=== PATIENT | male | born 1980 | race Caucasian/White ===

== ENCOUNTER 2018-01-05 12:01 | Day surgery (SDC) | payer BC ==
[2018-01-04 09:52] VITALS: BMI 26.2
[~2018-01-05 12:01] MED LIST: LACTATED RINGERS 1,000 ML IV SCH
[2018-01-05] MEDS ORDERED: LIDOCAINE 1% 20 ML VIAL (10MG/ML) FOR IV START INTRADERMA ONE (12:12)
[2018-01-05 12:32] VITALS: RESP 16; TEMP 97.8
[2018-01-05] MEDS ORDERED: PROPOFOL 10 MG/ML 20 ML VIAL IV ONE (14:17)
--- NOTE | 2018-01-05 15:06 | P.PCN ---
Date of Procedure: 01/05/18 Procedure(s) Performed: Procedure: 1. Esophagogastroduodenoscopy and biopsy. 2. Lower endoscopy/ ileoscopy/enteroscopy with biopsy. Preoperative diagnosis: Anemia with history of ulcerative colitis, S/P total proctocolectomy with ileoanal anal anastomosis and J-pouch creation. Postoperative diagnosis: 1. Small sliding hiatal hernia and short segment of Villa's esophagus and mild gastritis but no ulcers or active bleeding. 2. Small isolated ulceration in the pouch but, otherwise, no evidence of pouchitis or small intestinal inflammation. Preparation and sedation: Was provided by anesthesia. Brief clinical history: The patient is a 37-year-old male who was diagnosed with ulcerative colitis at age 22. He had required total colectomy with colostomy in 2011 which was then converted to ileo-anal anastomosis and creation of the J pouch in 2014 after herniation at the colostomy site. The patient has done well taking loperamide. More recently he has been having loose and watery stools with occasional blood. Has slight anemia. This evaluation is to assess for pouchitis or other etiology. Procedure: With the patient on his left lateral decubitus position and after informed consent and adequate sedation, I passed the Olympus-GIF 160 video upper endoscope through the cricopharyngeus down the esophagus. The zenia-GE junction starts at around 36 cm from the incisors and the tubular esophagus continues for another 2 cm defining a short Villa's segment then there was a small sliding hiatal hernia. The esophagus did not show obvious esophagitis. The endoscope was then passed into the stomach which was insufflated with air and inspected in detail including the retroflex view in the cardia. There was some mottling and erythema in the antrum but no ulcers or erosions. Pyloric channel, duodenal bulb, post bulbar area and descending duodenum appeared within normal limits. I obtained biopsies from the duodenum, antrum and esophagus as well as from the Villa's segment before the endoscope was withdrawn then I proceeded with the lower endoscopy. The perianal area was inspected and it did not show any fissures or fistulas. No masses were felt on digital rectal examination. The Olympus GIF 160 video endoscope was again used and was advanced inside the J-pouch and into the small intestine for a good distance. There was an isolated ulceration close to the anal junction but, otherwise, there was no evidence of pouchitis or small bowel involvement. I obtained biopsies in the anal pouch including a separate biopsy from the isolated ulceration close to the anal anastomosis. There was no spontaneous bleeding and all intestinal secretions were greenish in color. The patient tolerated the procedure well. Plan: The patient was reassured. Will await biopsy results and make further plans. I will keep you updated on his progress.
[2018-01-05 15:20] VITALS: BP 121/78; PULSE 71
== END 2018-01-05 15:30 | disposition home or self-care (01) ==
LOC: ORWHC2ENDO 12:01
DX: K29.50 Unspecified chronic gastritis without bleeding (principal); K20.9 Esophagitis, unspecified; K22.70 Barrett's esophagus without dysplasia; K52.89 Other specified noninfective gastroenteritis and colitis; K44.9 Diaphragmatic hernia without obstruction or gangrene; K51.90 Ulcerative colitis, unspecified, without complications; Z93.3 Colostomy status; Z90.49 Acquired absence of other specified parts of digestive tract; Z98.0 Intestinal bypass and anastomosis status; K21.9 Gastro-esophageal reflux disease without esophagitis; F17.210 Nicotine dependence, cigarettes, uncomplicated; G47.33 Obstructive sleep apnea (adult) (pediatric); G43.909 Migraine, unspecified, not intractable, without status migrainosus; Z79.899 Other long term (current) drug therapy
CPT/HCPCS: 88305; 43239; 44382; J2704

== ENCOUNTER 2018-07-24 19:24 | Emergency (ER) | payer BC ==
[2018-07-24 19:36] VITALS: TEMP 97.8
[2018-07-24] MEDS ORDERED: diphenhydrAMINE 50 MG/ML 1 ML VIAL IVP STA (20:17)
[2018-07-24] MEDS ORDERED: ONDANSETRON 4 MG/2 ML VIAL IVP STA (20:17)
[2018-07-24] MEDS ORDERED: KETOROLAC 30 MG/ML 1 ML VIAL IVP STA (20:17)
[2018-07-24] MEDS ORDERED: SODIUM CHLORIDE 0.9% 1,000 ML IV ONE (20:18)
--- NOTE | 2018-07-24 20:26 | ED ---
Headache HPI - General Chief Complaint: Headache Stated Complaint: Migraine Time Seen by Provider: 07/24/18 19:45 Mode of arrival: ambulatory Limitations: no limitations - History of Present Illness Initial Comments: 37yo male past history of chronic migraines previously prescribed Imitrex presented for chief complaint of migraine. Patient states he had a gradual onset of headache around 8 AM this morning. He states he has been increasing in intensity. He states he attempted to take Tylenol and take a nap. He states sometimes this works. He states that today he continued and then he proceeded to take an Excedrin. With symptoms persisted into this evening patient presented for evaluation. Patient states this is not the worst headache of his life. He states is very typical of his migraines is significant for the neck and migrates towards the frontal aspect of his head. He states usually has to nausea or vomiting he denies any of those symptoms today. Patient denies any visual changes weakness of the upper or lower extremities, speech changes, sensation deficits , fever, upper respiratory symptoms chest pain shortness of breath or any other associated symptoms today. Patient describes as a sharp stabbing headache. Patient states he usually presents emergency department when it gets to this level and he is provided medication to help alleviate his sym ptoms. Patient remaining review of systems negative upon arrival patient appears uncomfortable however no signs of acute distress. - Related Data Home Medications Medication Instructions Recorded Confirmed Diphenox-Atrop 2.5-0.025 mg 2 tab PO QID PRN 01/04/18 01/05/18 [Lomotil] Omeprazole [PriLOSEC] 40 mg PO DAILY 01/04/18 01/05/18 Previous Rx's Medication Instructions Recorded Ketorolac [Toradol] 10 mg PO Q6HR PRN 1 Days #4 tab 07/24/18 Allergies Allergy/AdvReac Type Severity Reaction Status Date / Time No Known Allergies Allergy Verified 07/24/18 19:33 Review of Systems ROS Statement: Those systems with pertinent positive or pertinent negative responses have been documented in the HPI. ROS Other: All systems not noted in ROS Statement are negative. Past Medical History Past Medical History: GERD/Reflux Additional Past Medical History / Comment(s): MIGRAINES, HX OF ULCERATIVE COLITIS WITH BOWEL SURGERY WITH J- POUCH.([id number])., DIARRHEA., History of Any Multi-Drug Resistant Organisms: None Reported Past Surgical History: Bowel Resection, Hernia Repair Additional Past Surgical History / Comment(s): HX OF BOWEL RESECTION WITH COLOSTOMY & REVERSA WITH J-POUCH., UMBILICAL HERNIA. Past Anesthesia/Blood Transfusion Reactions: No Reported Reaction Past Psychological History: No Psychological Hx Reported Smoking Status: Current some day smoker Past Alcohol Use History: Occasional Past Drug Use History: None Reported - Past Family History Mother Family Medical History: No Reported History General Exam - General Exam Comments Initial Comments: General: The patient is awake and alert, in no distress Eye: +3 mm pupils are equal, round and reactive to light, extra-ocular movements are intact. No nystagmus. There is normal conjunctiva bilaterally. No signs of icterus. Ears, nose, mouth and throat: There are moist mucous membranes and no oral lesions. Neck: The neck is supple, there is no tenderness or JVD. No nuchal rigidity. No midline tenderness. Cardiovascular: There is a regular rate and rhythm. No murmur, rub or gallop is appreciated. Respiratory: Lungs are clear to auscultation, respirations are non-labored, breath sounds are equal. No wheezes, stridor, rales, or rhonchi. Musculoskeletal: Normal ROM, no tenderness. Strength 5/5. Sensation intact. Pulses equal bilaterally 2+. Neurological: A&O x 3. CN II-XII intact,memory intact to immediately, intermediate and intermediate recall. Able to follow simple verbal. Able to name a common object (pen). High quality, labial (pa) and lingual (la) speech. Low quality posterior pharynx/larynx (ga) voice sounds. Able to express general knowledge (days in a week). No hemineglect or inattention noted. Finger agnosia (-) and spatially oriented (identified L index finger touched R shoulder with L index finger). Light touch and temperature sensation present over the face, chest, abdomen, back, UE bilaterally, and LE bilaterally. Able to localize point during point localization b/l and extinction. No visible bulk atrophy, hypertrophy, fasciculations, or myoclonus of the UE or LE b/l. Full PROM in UE and LE b/l. Bilateral muscle strength 5/5 for the following muscles: deltoid, biceps, triceps, brachioradialis, wrist extensors/flexor, hip flexor, hip abductors/adductors, hamstrings, quadriceps, feet dorsiflexors/plantar flexors. Finger to nose, finger to the examiners finger, and heel to lyons coordinated and accurate b/l. Coordinated and even demonstration of hand flip, finger to thumb, and toe tap b/l. Gait is coordinated and even in stride with tandem, toe and heel walk. Maintains balance with monopedal stance. (-) Romberg. (-) pronator drift. No nuchal rigidity. Skin: Skin is warm and dry and no rashes or lesions are noted. Psychiatric: Cooperative, appropriate mood & affect, normal judgment. Limitations: no limitations Course Vital Signs 07/24/18 07/24/18 19:31 21:18 Temperature 97.8 F Pulse Rate 77 73 Respiratory 16 18 Rate Blood Pressure 137/83 121/81 O2 Sat by Pulse 100 99 Oximetry Medical Decision Making - Medical Decision Making 37-year-old male presenting for migraine. Patient states his history of chronic migraines she denies any atypical characteristics of this migraine today. He denies a sudden onset he denies this being the worst headache of his life denies any neck stiffness fever chills or night sweats. Patient states usually comes emergency Department for portion of the migraine symptoms. No focalized neurological symptoms on examination. Patient was given Toradol Benadryl and Zofran. He states that his migraine is decreasing suddenly. He states is now 3 out of 10. Patient requesting discharge. At this time given patient's physical examination findings, relief with symptomatic treatment that patient is stable for discharge with outpatient primary f/u. . I did recommend patient received a neurology referral from PCP for further evaluation/management of chronic migraines. Patient is agreeable [facility] plan and return parameters as discussed. Patient discharged appearing well. Disposition Clinical Impression: Headache Disposition: HOME SELF-CARE Condition: Good Instructions (If sedation given, give patient instructions): Acute Headache (ED) Additional Instructions: Please use medication as discussed. Please follow-up with family doctor in the next 2 days, I recommend neurological evaluation given chronicity of symptoms. Please return to emergency room if the symptoms increase or worsen or for any other concerns. Prescriptions: Ketorolac [Toradol] 10 mg PO Q6HR PRN 1 Days #4 tab PRN Reason: Headache Is patient prescribed a controlled substance at d/c from ED?: No Referrals: Navi Colbert MD [Primary Care Provider] - 1-2 days Time of Disposition: 20:59
[2018-07-24 21:19] VITALS: BP 121/81; PULSE 73; RESP 18
== END 2018-07-24 21:18 | disposition home or self-care (01) ==
LOC: EC 19:24
DX: G43.709 Chronic migraine without aura, not intractable, without status migrainosus (principal); K21.9 Gastro-esophageal reflux disease without esophagitis; F17.200 Nicotine dependence, unspecified, uncomplicated; Z79.899 Other long term (current) drug therapy
CPT/HCPCS: 99283; 96374; 96375 ×2; 96361; J1200; J2405; J1885

== ENCOUNTER 2019-11-05 13:17 | Emergency (ER) | payer BC ==
[2019-11-05 13:39] VITALS: TEMP 98
[2019-11-05] MEDS ORDERED: MORPHINE SULFATE 4 MG/ML SYRINGE IV STA (13:49)
[2019-11-05] MEDS ORDERED: SODIUM CHLORIDE 0.9% 1,000 ML IV STA ×2 (13:49)
[2019-11-05] MEDS ORDERED: ONDANSETRON 4 MG/2 ML VIAL IVP STA (13:49)
--- NOTE | 2019-11-05 13:50 | ED ---
Abdominal Pain HPI - General Chief Complaint: Abdominal Pain Stated Complaint: Abd Pain Time Seen by Provider: 11/05/19 13:49 Source: patient, RN notes reviewed, old records reviewed Mode of arrival: ambulatory Limitations: no limitations - History of Present Illness Initial Comments: This is a 31-year-old male presents today for evaluation regarding abdominal pain epigastric abdominal pain right upper quadrant abdominal pain. With pain became very diaphoretic and pale. Nauseous no vomiting no fevers. History of ulcerative colitis and J-pouch. Patient still currently with pain MD Complaint: abdominal pain -: minutes(s) Location: diffuse, periumbilical, epigastric Radiation: epigastric Migration to: RUQ Severity: severe Severity scale (1-10): 10 Quality: stabbing, aching Consistency: constant Improves With: nothing Worsens With: nothing Associated Symptoms: nausea - Related Data Home Medications Medication Instructions Recorded Confirmed Diphenox-Atrop 2.5-0.025 mg 2 tab PO QID PRN 01/04/18 01/05/18 [Lomotil] Omeprazole [PriLOSEC] 40 mg PO DAILY 01/04/18 01/05/18 Previous Rx's Medication Instructions Recorded Ketorolac [Toradol] 10 mg PO Q6HR PRN 1 Days #4 tab 07/24/18 Allergies Allergy/AdvReac Type Severity Reaction Status Date / Time No Known Allergies Allergy Verified 11/05/19 13:36 Review of Systems ROS Statement: Those systems with pertinent positive or pertinent negative responses have been documented in the HPI. ROS Other: All systems not noted in ROS Statement are negative. Past Medical History Past Medical History: GERD/Reflux Additional Past Medical History / Comment(s): MIGRAINES, HX OF ULCERATIVE COLITIS WITH BOWEL SURGERY WITH J- POUCH.([id number])., DIARRHEA., History of Any Multi-Drug Resistant Organisms: None Reported Past Surgical History: Bowel Resection, Hernia Repair Additional Past Surgical History / Comment(s): HX OF BOWEL RESECTION WITH COLOSTOMY & REVERSA WITH J-POUCH., UMBILICAL HERNIA. Past Anesthesia/Blood Transfusion Reactions: No Reported Reaction Past Psychological History: No Psychological Hx Reported Smoking Status: Current every day smoker, Never smoker Past Alcohol Use History: Occasional Past Drug Use History: None Reported - Past Family History Mother Family Medical History: No Reported History General Exam Limitations: no limitations General appearance: alert, in no apparent distress Head exam: Present: atraumatic, normocephalic, normal inspection Eye exam: Present: normal appearance, PERRL, EOMI. Absent: scleral icterus, conjunctival injection, periorbital swelling ENT exam: Present: normal exam, mucous membranes moist Neck exam: Present: normal inspection. Absent: tenderness, meningismus, lympha denopathy Respiratory exam: Present: normal lung sounds bilaterally. Absent: respiratory distress, wheezes, rales, rhonchi, stridor Cardiovascular Exam: Present: regular rate, normal rhythm, normal heart sounds. Absent: systolic murmur, diastolic murmur, rubs, gallop, clicks GI/Abdominal exam: Present: soft, normal bowel sounds. Absent: distended, tenderness, guarding, rebound, rigid Extremities exam: Present: normal inspection, full ROM, normal capillary refill. Absent: tenderness, pedal edema, joint swelling, calf tenderness Back exam: Present: normal inspection Neurological exam: Present: alert, oriented X3, CN II-XII intact Psychiatric exam: Present: normal affect, normal mood Skin exam: Present: warm, dry, intact, normal color. Absent: rash Course Vital Signs 11/05/19 11/05/19 11/05/19 13:36 14:53 16:34 Temperature 98 F Pulse Rate 97 82 81 Respiratory 18 18 16 Rate Blood Pressure 130/70 123/65 120/78 O2 Sat by Pulse 100 97 100 Oximetry - Reevaluation(s) Reevaluation #1: 11/05/19 14:36 Medical records reviewed Reevaluation #2: 11/05/19 16:44 Patient has scheduled pain control currently Reevaluation #3: 11/05/19 16:44 Patient informed results and questions are answered Medical Decision Making - Medical Decision Making 39 male DF for evaluation patient to the ER for evaluation regards to abdominal pain. Patient's findings here in the ER normal. Ligament GI follow-up and can be discharged home - Lab Data Result diagrams: 11/05/19 13:49 11/05/19 13:49 Lab Results 11/05/19 11/05/19 11/05/19 Range/Units 13:49 13:49 13:49 WBC 9.4 (3.8-10.6) k/uL RBC 4.82 (4.30-5.90) m/uL Hgb 9.7 L (13.0-17.5) gm/dL Hct 32.7 L (39.0-53.0) % MCV 67.9 L (80.0-100.0) fL MCH 20.1 L (25.0-35.0) pg MCHC 29.6 L (31.0-37.0) g/dL RDW 17.9 H (11.5-15.5) % Plt Count 462 H (150-450) k/uL Neutrophils % 79 % Lymphocytes % 10 % Monocytes % 7 % Eosinophils % 2 % Basophils % 1 % Neutrophils # 7.5 (1.3-7.7) k/uL Lymphocytes # 1.0 (1.0-4.8) k/uL Monocytes # 0.7 (0-1.0) k/uL Eosinophils # 0.2 (0-0.7) k/uL Basophils # 0.0 (0-0.2) k/uL Hypochromasia Marked Poikilocytosis Slight Anisocytosis Slight Microcytosis Marked Sodium 139 (137-145) mmol/L Potassium 4.5 (3.5-5.1) mmol/L Chloride 109 H (98-107) mmol/L Carbon Dioxide 21 L (22-30) mmol/L Anion Gap 9 mmol/L BUN 15 (9-20) mg/dL Creatinine 1.03 (0.66-1.25) mg/dL Est GFR (CKD-EPI)AfAm >90 (>60 ml/min/1.73 sqM) Est GFR (CKD-EPI)NonAf >90 (>60 ml/min/1.73 sqM) Glucose 61 L (74-99) mg/dL Plasma Lactic Acid Domingo 1.6 (0.7-2.0) mmol/L Calcium 9.3 (8.4-10.2) mg/dL Total Bilirubin 0.5 (0.2-1.3) mg/dL AST 52 (17-59) U/L ALT 27 (4-49) U/L Alkaline Phosphatase 103 (38-126) U/L Total Protein 7.5 (6.3-8.2) g/dL Albumin 4.3 (3.5-5.0) g/dL Amylase 76 (30-110) U/L Lipase 243 (23-300) U/L - Radiology Data Radiology results: report reviewed (Ultrasound gallbladder and x-ray KUB negative for acute disease), image reviewed Disposition Clinical Impression: Abdominal pain Disposition: HOME SELF-CARE Condition: Good Instructions (If sedation given, give patient instructions): Abdominal Pain (ED) Is patient prescribed a controlled substance at d/c from ED?: No Referrals: Erasmo Moreno MD [Primary Care Provider] - 1-2 days
[2019-11-05 14:13] LABS: Anisocytosis Slight; Basophils % (A) 1 %; Eosinophils # (A) 0.2 k/uL (0-0.7); Eosinophils % (A) 2 %; HCT 32.7 % (39.0-53.0); HGB 9.7 gm/dL (13.0-17.5); Hypochromasia Marked; Lymphocytes % (A) 10 %; MCH 20.1 pg (25.0-35.0); MCHC 29.6 g/dL (31.0-37.0); MCV 67.9 fL (80.0-100.0); Mean Platelet Volume 6.7; Microcytosis Marked; Monocytes # (A) 0.7 k/uL (0-1.0); Monocytes % (A) 7 %; Neutrophils # (A) 7.5 k/uL (1.3-7.7); Neutrophils % (A) 79 %; Platelet Count 462 k/uL (150-450); Poikilocytosis Slight; RBC 4.82 m/uL (4.30-5.90); RDW 17.9 % (11.5-15.5); WBC 9.4 k/uL (3.8-10.6)
[2019-11-05 14:22] LABS: ALT 27 U/L (4-49); AST 52 U/L (17-59); African American GFR (CKD) >90 (>60 ml/min/1.73 sqM); Albumin 4.3 g/dL (3.5-5.0); Alkaline Phosphatase 103 U/L (38-126); Amylase 76 U/L (30-110); Anion Gap 9 mmol/L; Blood Urea Nitrogen 15 mg/dL (9-20); Calcium 9.3 mg/dL (8.4-10.2); Carbon Dioxide 21 mmol/L (22-30); Chloride 109 mmol/L (98-107); Glucose 61 mg/dL (74-99); Non-African American GFR(CKD) >90 (>60 ml/min/1.73 sqM); Potassium 4.5 mmol/L (3.5-5.1); Sodium 139 mmol/L (137-145); Total Bilirubin 0.5 mg/dL (0.2-1.3); Total Protein 7.5 g/dL (6.3-8.2)
--- NOTE | 2019-11-05 14:49 | XR ---
EXAMINATION TYPE: XR KUB DATE OF EXAM: 11/05/2019 COMPARISON: 06/02/2011 HISTORY: Right upper quadrant pain TECHNIQUE: 2 views upright. FINDINGS: There is no sign of intestinal obstruction or pneumoperitoneum. Fecal pattern is normal. There is no evidence of a mass. There are no pathologic calcifications over the kidneys. Lung bases are clear. IMPRESSION: Nonacute abdomen.
--- NOTE | 2019-11-05 16:24 | US ---
EXAMINATION TYPE: US gallbladder DATE OF EXAM: 11/05/2019 COMPARISON: CT 08/20/11 CLINICAL HISTORY: pain. Intermittent RUQ Pain, nausea x months; worse today EXAM MEASUREMENTS: Liver Length: 17.0 cm Gallbladder Wall: 0.3 cm CBD: 0.4 cm Right Kidney: 12.3 x 4.2 x 5.0 cm Pancreas: wnl as seen Liver: wnl Gallbladder: multiple stones Evidence for sonographic Christine's sign: No CBD: wnl Right Kidney: No hydronephrosis or masses seen IMPRESSION: Numerous gallstones. No dilated ducts.
[2019-11-05 16:37] VITALS: BP 120/78; PULSE 81; RESP 16
== END 2019-11-05 17:15 | disposition home or self-care (01) ==
LOC: EC 13:17
DX: R10.13 Epigastric pain (principal); R10.11 Right upper quadrant pain; R10.33 Periumbilical pain; K21.9 Gastro-esophageal reflux disease without esophagitis; Z79.899 Other long term (current) drug therapy; Z98.890 Other specified postprocedural states; Z93.3 Colostomy status
CPT/HCPCS: 36415; 80053; 82150; 83605; 83690; 85025; 74018; 76705; 99285; 96374; 96375; 96361 ×3; J2270; J2405

== ENCOUNTER 2020-01-30 07:27 | Day surgery (SDC) | payer BC ==
[2020-01-25 15:35] VITALS: BMI 23.7
[~2020-01-30 07:27] MED LIST changes: +ACETAMINOPHEN TAB 500 MG TAB PO PRN; +DEXAMETHASONE SOD PHOSPHATE 4 MG/ML 1 ML VIAL IV ONE; +HEPARIN SODIUM,PORCINE 5,000 UNIT/ML 1 ML VIAL SQ PRN
[2020-01-30 07:45] VITALS: RESP 16
[2020-01-30] MEDS ORDERED: TAMSULOSIN 0.4 MG CAP.ER.24H PO ONE (08:02)
[2020-01-30] MEDS: ONDANSETRON 4 MG/2 ML VIAL IVP ONE ×2 (08:02→10:06)
--- NOTE | 2020-01-30 08:42 | P.GSHP ---
History of Present Illness H&P Date: 01/30/20 Chief Complaint: Right upper quadrant pain This a 39-year-old male since they for laparoscopic cholestatic. He's had complete the right quadrant pain. He is found have cholelithiasis. Past Medical History Past Medical History: GERD/Reflux Additional Past Medical History / Comment(s): MIGRAINES, HX OF ULCERATIVE COLITIS WITH BOWEL SURGERY WITH J- POUCH.([id number])., DIARRHEA., History of Any Multi-Drug Resistant Organisms: None Reported Past Surgical History: Bowel Resection, Hernia Repair Additional Past Surgical History / Comment(s): HX OF BOWEL RESECTION WITH COLOSTOMY & REVERSA WITH J-POUCH., UMBILICAL HERNIA. Past Anesthesia/Blood Transfusion Reactions: No Reported Reaction Smoking Status: Current every day smoker - Past Family History Mother Family Medical History: No Reported History Medications and Allergies Home Medications Medication Instructions Recorded Confirmed Type Escitalopram Oxalate [Lexapro] 20 mg PO DAILY 01/25/20 01/30/20 History Famotidine [Pepcid] 20 mg PO DAILY 01/25/20 01/30/20 History Ferrous Fumarate/Ascorbic Acid 1 each PO Q2D 01/25/20 01/30/20 History [Janet-Sequels 65-25 mg Caplet] Loperamide [Imodium] 4 mg PO QID 01/25/20 01/30/20 History Allergies Allergy/AdvReac Type Severity Reaction Status Date / Time No Known Allergies Allergy Verified 01/30/20 07:46 Surgical - Exam Vital Signs Temp Pulse Resp BP Pulse Ox 98.6 F 71 16 123/77 98 01/30/20 07:43 01/30/20 07:43 01/30/20 07:43 01/30/20 07:43 01/30/20 07:43 - General well developed, well nourished, no distress - Eyes PERRL - ENT normal pinna - Neck no masses - Respiratory normal expansion - Cardiovascular Rhythm: regular - Abdomen Abdomen: soft, non tender Assessment and Plan Assessment: Cholelithiasis Right quadrant pain We'll perform laparoscopic cholecystectomy.
[2020-01-30] MEDS ORDERED: ROCURONIUM 10 MG/ML (10 ML VIAL) IV ONE (09:00)
[2020-01-30] MEDS ORDERED: MIDAZOLAM 2 MG/2 ML VIAL ONE (09:00)
[2020-01-30] MEDS ORDERED: PROPOFOL 10 MG/ML 20 ML VIAL IV ONE (09:00)
[2020-01-30] MEDS ORDERED: SUCCINYLCHOLINE CHLORIDE 100 MG/5 ML SYR IV ONE (09:00)
[2020-01-30] MEDS ORDERED: HYDROmorphone (PF) 1 MG/ML ONE (09:00)
[2020-01-30] MEDS ORDERED: GLYCOPYRROLATE 0.2 MG/ML 2 ML VIAL ONE (09:00)
[2020-01-30] MEDS ORDERED: LIDOCAINE 1% INJ 10MG/ML (20 ML MDV) ONE (09:00)
[2020-01-30] MEDS ORDERED: NEOSTIGMINE 1 MG/ML 10 ML VIAL ONE (09:00)
[2020-01-30] MEDS ORDERED: fentaNYL (PF) 50 MCG/ML 2 ML AMP ONE (09:00)
[2020-01-30] MEDS ORDERED: BUPIVACAIN-EPI 0.5%-1:200,000 30 ML VIAL SQ ONE (09:18)
[2020-01-30] MEDS ORDERED: LACTATED RINGERS 1,000 ML IV ONE (09:28)
[2020-01-30 09:44] VITALS: TEMP 98
[2020-01-30] MEDS ORDERED: KETOROLAC 15 MG/ML 1 ML VIAL IVP ONE (09:47)
--- NOTE | 2020-01-30 09:48 | P.OP ---
Date of Procedure: 01/30/20 Preoperative Diagnosis: Cholelithiasis Postoperative Diagnosis: Cholelithiasis Procedure(s) Performed: Laparoscopic cholecystectomy Anesthesia: WILVER Surgeon: Mckinley Reeves Estimated Blood Loss (ml): 5 Pathology: other (Gallbladder) Condition: stable Disposition: PACU Description of Procedure: The patient was placed on the operating table. The patient received a general endotracheal tube anesthesia. The patients abdomen was prepped and draped in the usual sterile fashion. Through an infraumbilical stab incision, the fascia of the anterior abdominal wall was grasped with a pair of Kochers and then the Veress needle was placed in the peritoneal cavity. Position of the Veress needle was confirmed with positive drop test. The abdomen was then insufflated. After adequate insufflation, the 10 mm trocar was placed in the peritoneal cavity. Following this the laparoscope was placed in the peritoneal cavity. The patient was placed in the head-up, right side up position and then a 5 mm trocar was placed in the right lateral and right subcostal position under direct visualization. A 8 mm trocar was placed in the epigastric position. The gallbladder was grasped in the fundus and infundibulum. Traction on the gallbladder was placed in the lateral and the cephalad positions. The triangle of Calot was visualized.. The cystic duct was bluntly dissected until the union of the cystic duct and common bile duct was seen. A critical view of safety was achieved. The cystic duct was then divided and sealed with the Harmonic scissors. A PDS Endoloop was then placed throughout the cystic duct stump. The cystic artery divided and sealed with the Harmonic scissors. The gallbladder was then removed from the liver bed using Harmonic scissors. The gallbladder was then extracted through the epigastric port site. Operative field was checked for any bleeding spots and Harmonic scissors was used to coagulate the liver bed. The abdomen was irrigated. The trocars were removed. The skin was closed using interrupted 3-0 Vicryl suture. Dermabond dressing were applied. The patient tolerated the procedure well.
[2020-01-30] MEDS: HYDROmorphone 0.5 MG/0.5 ML SYRINGE IVP PRN ×2 (09:55→10:06)
[2020-01-30 11:29] VITALS: BP 113/69; PULSE 96
== END 2020-01-30 11:34 | disposition home or self-care (01) ==
LOC: OR 07:27
PROVIDERS: ATTEND Surgery
DX: K80.12 Calculus of gallbladder with acute and chronic cholecystitis without obstruction (principal); K51.90 Ulcerative colitis, unspecified, without complications; F41.9 Anxiety disorder, unspecified; F32.9 Major depressive disorder, single episode, unspecified; K21.9 Gastro-esophageal reflux disease without esophagitis; G43.909 Migraine, unspecified, not intractable, without status migrainosus; F17.210 Nicotine dependence, cigarettes, uncomplicated; Z79.899 Other long term (current) drug therapy; Z90.49 Acquired absence of other specified parts of digestive tract; Z98.890 Other specified postprocedural states
CPT/HCPCS: 47562; J2250; J1644; J1100; J2710; J0690; J2405; J2001; J3010; J1170 ×2; J1885; J0330; J2704; 88304

== ENCOUNTER 2020-05-12 10:43 | Inpatient (IN) | payer BC, MEDICAID, OTHER ==
--- NOTE | 2020-05-12 11:21 | ED ---
General Adult HPI - General Chief complaint: Psychiatric Symptoms Stated complaint: Self Harm Time Seen by Provider: 05/12/20 10:45 Source: patient, RN notes reviewed, old records reviewed Mode of arrival: ambulatory Limitations: no limitations - History of Present Illness Initial comments: This is a 39-year-old male who presents emergency Department stating he's been very depressed lately and has been contemplating suicide. Patient states she has considered taking pills. Patient's been taxing his ex-fiance that he is considering hurting himself. Patient states she has had a couple drinking binges but in general does not drink daily. Patient states he also recently lost his job lost his home and lost his fiance. Patient denies any physical complaints today. - Related Data Home Medications Medication Instructions Recorded Confirmed Escitalopram Oxalate [Lexapro] 20 mg PO DAILY 01/25/20 05/12/20 Ferrous Fumarate/Ascorbic Acid 1 tab PO Q48H 01/25/20 05/12/20 [Janet-Sequels 65-25 mg Caplet] Acetaminophen Tab [Tylenol] 650 mg PO Q6H PRN 05/12/20 05/12/20 LORazepam [Ativan] 0.5 mg PO TID PRN 05/12/20 05/12/20 Allergies Allergy/AdvReac Type Severity Reaction Status Date / Time No Known Allergies Allergy Verified 05/12/20 10:50 Review of Systems ROS Statement: Those systems with pertinent positive or pertinent negative responses have been documented in the HPI. ROS Other: All systems not noted in ROS Statement are negative. Past Medical History Past Medical History: GERD/Reflux Additional Past Medical History / Comment(s): MIGRAINES, HX OF ULCERATIVE COLITIS WITH BOWEL SURGERY WITH J- POUCH.([id number])., DIARRHEA., History of Any Multi-Drug Resistant Organisms: None Reported Past Surgical History: Bowel Resection, Hernia Repair Additional Past Surgical History / Comment(s): HX OF BOWEL RESECTION WITH COLOSTOMY & REVERSA WITH J-POUCH., UMBILICAL HERNIA. Past Anesthesia/Blood Transfusion Reactions: No Reported Reaction Past Psychological History: No Psychological Hx Reported, Anxiety, Depression Smoking Status: Current every day smoker Past Alcohol Use History: Occasional Past Drug Use History: Marijuana - Past Family History Mother Family Medical History: No Reported History General Exam - General Exam Comments Initial Comments: GENERAL: Patient is well-developed and well-nourished. Patient is nontoxic and well- hydrated and is in no acute distress. ENT: Neck is soft and supple. No significant lymphadenopathy is noted. Oropharynx is clear. Moist mucous membranes. Neck has full range of motion without eliciting any pain. EYES: The sclera were anicteric and conjunctiva were pink and moist. Extraocular movements were intact and pupils were equal round and reactive to light. Eyelids were unremarkable. PULMONARY: Unlabored respirations. Good breath sounds bilaterally. No audible rales rhonchi or wheezing was noted. CARDIOVASCULAR: There is a regular rate and rhythm without any murmurs gallops or rubs. ABDOMEN: Soft and nontender with normal bowel sounds. SKIN: Skin is clear with no lesions or rashes and otherwise unremarkable. NEUROLOGIC: Patient is alert and oriented x3. Cranial nerves II through XII are grossly intact. Motor and sensory are also intact. Normal speech, volume and content. Symmetrical smile. MUSCULOSKELETAL: Normal extremities with adequate strength and full range of motion. LYMPHATICS: No significant lymphadenopathy is noted PSYCHIATRIC: Patient is very flat affect and states he has been very depressed and content putting suicide. Patient does have a plan Limitations: no limitations Course Vital Signs 05/12/20 10:46 Temperature 98.4 F Pulse Rate 105 H Respiratory 18 Rate Blood Pressure 132/87 O2 Sat by Pulse 98 Oximetry Medical Decision Making - Medical Decision Making EPS evaluated the patient the patient agreed to be admitted. Disposition Clinical Impression: Depression, Suicidal ideation Disposition: ADMITTED IP TO THIS HOSP Referrals: Erasmo Moreno MD [Primary Care Provider] - 1-2 days Time of Disposition: 14:16
[2020-05-12 14:41] LABS: Amphetamine Screen,Urine Not Detected (NotDetected); Barbiturate Screen,Urine Not Detected (NotDetected); Benzodiazepines Screen,Urine Detected (NotDetected); Cocaine Screen,Urine Not Detected (NotDetected); Methadone Screen, Urine Not Detected (NotDetected); Opiate Screen,Urine Not Detected (NotDetected); Oxycodone Screen, Urine Not Detected (NotDetected); Phencyclidine Screen,Urine Not Detected (NotDetected); Tricyclic Antidepressant,Urine Not Detected (NotDetected); Urn Cannabinoid Scrn Detected (NotDetected)
[2020-05-12] MEDS ORDERED: MAGNESIUM HYDROXIDE 2,400 MG/10 ML CUP PO PRN (15:41)
[2020-05-12] MEDS ORDERED: MAG HYDROX/AL HYDROX/SIMETH 30 ML CUP PO PRN (15:41)
[2020-05-12] MEDS ORDERED: LORazepam 2 MG/ML INJ IM PRN (15:45)
[2020-05-12] MEDS ORDERED: HALOPERIDOL LACTATE 5 MG/ML 1 ML VIAL IM PRN (15:46)
[2020-05-12] MEDS: NICOTINE 14MG/24HR PATCH TRANSDERM SCH (17:02)
[2020-05-12] MEDS: LOPERAMIDE 2 MG CAP PO PRN (17:52)
--- NOTE | 2020-05-12 20:05 | CONS ---
CONSULTATION DATE OF SERVICE: 05/12/2020 REASON FOR CONSULTATION: Advice regarding diarrhea ( ). HISTORY: This 39-year-old gentleman with a past history of GERD, migraine, history of ulcerative colitis, bowel resection, and history of anxiety, depression, being followed by Dr. Moreno in the outpatient admitted for depression and suicidal ideations. The patient apparently taking Imodium 4 mg every 6 hours for diarrhea. The patient had bowel resection with colostomy and pouch from 2002 to 2012. There is no history of fever, rigors. No headache loss of consciousness, seizures at this time. PAST MEDICAL HISTORY: Ulcerative colitis, migraine, GERD, bowel resection, hernia repair. MEDICATIONS: Ativan, iron sulfate, Lexapro, Tylenol. ALLERGIES: None. FAMILY HISTORY: No history of heart disease or strokes in the family. SOCIAL HISTORY: History of smoking currently. No history of alcohol intake. REVIEW OF SYSTEMS: ENT No history of diminished hearing or vision. CARDIOVASCULAR No angina or palpitations. RESPIRATORY No cough, no hemoptysis. GI As mentioned earlier. No dysuria or hematuria. NERVOUS No numbness or weakness. ALLERGY/IMMUNOLOGY No asthma or hayfever. MUSCULOSKELETAL As mentioned earlier. HEMATOLOGY/ONCOLOGY Negative. ENDOCRINE No history of diabetes or hypothyroidism. CONSTITUTIONAL As mentioned earlier. DERMATOLOGY Negative. RHEUMATOLOGY Negative, PSYCHIATRY As mentioned earlier. PHYSICAL EXAMINATION: Alert and oriented x3. Pulse 88, blood pressure 124/70, respiration 20, temperature 98.2, pulse ox 98% on room air. HEENT: Conjunctivae normal. Oral mucosa moist. NECK: No jugular venous distention. No lymph node enlargement. CARDIOVASCULAR: S1, S2, muffled. No S3, no S4, RESPIRATORY: Diminished breath sounds at the bases. Bilateral scattered rhonchi and crackles. ABDOMEN: Soft, nontender. No mass palpable. LEGS: No edema, no swelling. NERVOUS SYSTEM: Higher functions mentioned earlier. Moves all four limbs. No focal motor or sensory deficits. LYMPHATICS: No lymph node in neck or axilla. SKIN: No rash. JOINTS: No active deforming arthropathy. LABS: The urine drug screen is positive for THC and benzodiazepines. ASSESSMENT: 1. Depression with suicidal ideation. 2. Diarrhea secondary to ulcerative colitis. 3. History of bowel resection and a J-pouch. 4. History of migraine. 5. History of gastroesophageal reflux disease. 6. History of anxiety, depression. 7. History of nicotine dependence. 8. FULL CODE. RECOMMENDATIONS: In this 39-year-old gentleman who presented with psychiatric issues, I recommend to resume the home medications and continue with Imodium for now and the patient will be asked to follow up with Dr. Moreno after discharge and I will be happy to review any abnormal labs. We will follow the patient closely. Thank you for letting us participate in the care of this patient. LEA / CRALYN: [phone] /
[2020-05-12] MEDS: LORazepam 1 MG TAB PO PRN (23:16)
[2020-05-12] MEDS: ACETAMINOPHEN TAB 325 MG TAB PO PRN (23:16)
[2020-05-13 07:04] VITALS: RESP 18
[2020-05-13] MEDS: LOPERAMIDE 2 MG CAP PO PRN ×3 (08:00→21:54)
[2020-05-13] MEDS: ACETAMINOPHEN TAB 325 MG TAB PO PRN (08:00)
[2020-05-13] MEDS: NICOTINE 14MG/24HR PATCH TRANSDERM SCH (08:01)
[2020-05-13 08:08] LABS: Basophils % (A) 0 %; Eosinophils # (A) 0.2 k/uL (0-0.7); Eosinophils % (A) 2 %; HCT 50.9 % (39.0-53.0); HGB 16.6 gm/dL (13.0-17.5); Lymphocytes # (A) 2.2 k/uL (1.0-4.8); Lymphocytes % (A) 21 %; MCH 29.5 pg (25.0-35.0); MCHC 32.7 g/dL (31.0-37.0); MCV 90.4 fL (80.0-100.0); Mean Platelet Volume 6.4; Monocytes # (A) 0.8 k/uL (0-1.0); Monocytes % (A) 8 %; Neutrophils # (A) 6.8 k/uL (1.3-7.7); Neutrophils % (A) 67 %; Platelet Count 499 k/uL (150-450); RBC 5.63 m/uL (4.30-5.90); RDW 14.4 % (11.5-15.5); WBC 10.2 k/uL (3.8-10.6)
[2020-05-13 08:19] LABS: Calcium 9.5 mg/dL (8.4-10.2); Total Bilirubin 0.5 mg/dL (0.2-1.3); Total Protein 7.7 g/dL (6.3-8.2)
[2020-05-13 09:07] LABS: Potassium 4.9 mmol/L (3.5-5.1)
[2020-05-13] MEDS: ESCITALOPRAM 20 MG TAB PO SCH (09:20)
[2020-05-13] MEDS ORDERED: PNEUMOCOCCAL VACC-PNEUMOVAX 23 25 MCG/0.5 ML VIAL IM ONE (10:00)
[2020-05-13] MEDS ORDERED: INFLUENZA VACCINE (6 MOS+) 60 MCG/0.5 ML SYRINGE IM ONE (10:00)
--- NOTE | 2020-05-13 11:43 | P.HP ---
Psychiatric H&P - . H&P Date: 05/13/20 History & Physical: Allergies Allergy/AdvReac Type Severity Reaction Status Date / Time No Known Allergies Allergy Verified 05/12/20 18:53 Vital Signs Temp 98.6 F 05/13/20 06:49 Pulse 63 05/13/20 06:49 Resp 18 05/13/20 06:49 BP 132/77 05/13/20 06:49 Pulse Ox 98 05/12/20 18:29 Intake & Output 05/12/20 05/13/20 05/13/20 18:59 06:59 18:59 Weight 90.8 kg Laboratory Last Values WBC 10.2 k/uL (3.8-10.6) 05/13/20 07:52 RBC 5.63 m/uL (4.30-5.90) 05/13/20 07:52 Hgb 16.6 gm/dL (13.0-17.5) 05/13/20 07:52 Hct 50.9 % (39.0-53.0) 05/13/20 07:52 MCV 90.4 fL (80.0-100.0) 05/13/20 07:52 MCH 29.5 pg (25.0-35.0) 05/13/20 07:52 MCHC 32.7 g/dL (31.0-37.0) 05/13/20 07:52 RDW 14.4 % (11.5-15.5) 05/13/20 07:52 Plt Count 499 k/uL (150-450) H 05/13/20 07:52 MPV 6.4 05/13/20 07:52 Neutrophils % 67 % 05/13/20 07:52 Lymphocytes % 21 % 05/13/20 07:52 Monocytes % 8 % 05/13/20 07:52 Eosinophils % 2 % 05/13/20 07:52 Basophils % 0 % 05/13/20 07:52 Neutrophils # 6.8 k/uL (1.3-7.7) 05/13/20 07:52 Lymphocytes # 2.2 k/uL (1.0-4.8) 05/13/20 07:52 Monocytes # 0.8 k/uL (0-1.0) 05/13/20 07:52 Eosinophils # 0.2 k/uL (0-0.7) 05/13/20 07:52 Basophils # 0.0 k/uL (0-0.2) 05/13/20 07:52 Sodium 140 mmol/L (137-145) 05/13/20 07:52 Potassium 4.9 mmol/L (3.5-5.1) 05/13/20 07:52 Chloride 103 mmol/L (98-107) 05/13/20 07:52 Carbon Dioxide 28 mmol/L (22-30) 05/13/20 07:52 Anion Gap 9 mmol/L 05/13/20 07:52 BUN 18 mg/dL (9-20) 05/13/20 07:52 Creatinine 1.27 mg/dL (0.66-1.25) H 05/13/20 07:52 Est GFR (CKD-EPI)AfAm 82 (>60 ml/min/1.73 sqM) 05/13/20 07:52 Est GFR (CKD-EPI)NonAf 71 (>60 ml/min/1.73 sqM) 05/13/20 07:52 Glucose 91 mg/dL (74-99) 05/13/20 07:52 Calcium 9.5 mg/dL (8.4-10.2) 05/13/20 07:52 Total Bilirubin 0.5 mg/dL (0.2-1.3) 05/13/20 07:52 AST 36 U/L (17-59) 05/13/20 07:52 ALT 25 U/L (4-49) 05/13/20 07:52 Alkaline Phosphatase 59 U/L (38-126) 05/13/20 07:52 Total Protein 7.7 g/dL (6.3-8.2) 05/13/20 07:52 Albumin 4.0 g/dL (3.5-5.0) 05/13/20 07:52 Triglycerides 95 mg/dL (<150) 05/13/20 07:52 Cholesterol 180 mg/dL (<200) 05/13/20 07:52 LDL Cholesterol, Calc 136 mg/dL (0-99) H 05/13/20 07:52 HDL Cholesterol 25 mg/dL (40-60) L 05/13/20 07:52 Urine Opiates Screen Not Detected (NotDetected) 05/12/20 14:06 Ur Oxycodone Screen Not Detected (NotDetected) 05/12/20 14:06 Urine Methadone Screen Not Detected (NotDetected) 05/12/20 14:06 Ur Propoxyphene Screen Not Detected (NotDetected) 05/12/20 14:06 Ur Barbiturates Screen Not Detected (NotDetected) 05/12/20 14:06 U Tricyclic Antidepress Not Detected (NotDetected) 05/12/20 14:06 Ur Phencyclidine Scrn Not Detected (NotDetected) 05/12/20 14:06 Ur Amphetamines Screen Not Detected (NotDetected) 05/12/20 14:06 U Methamphetamines Scrn Not Detected (NotDetected) 05/12/20 14:06 U Benzodiazepines Scrn Detected (NotDetected) H 05/12/20 14:06 Urine Cocaine Screen Not Detected (NotDetected) 05/12/20 14:06 U Marijuana (THC) Screen Detected (NotDetected) H 05/12/20 14:06 Coronavirus (PCR) Not Detected (Not Detectd) 05/12/20 14:17 05/13/20 11:20 Chief complaint: Patient stated he is going through a separation from his partner. He lost his job. He stated he started drinking alcohol and became depressed and had suicidal thoughts and made a suicidal attempt. History of present illness: This patient stated he was thrown out of his job and ever since he has started to drink more than but he would normally do. He stated he thought that he had COVID-19 and did not go to his work for 3 days. He stated he was told he was no call no-show for 3 days and was terminated from his job. He stated he was working on the job for last 2 years up until February 2020. He stated ever since he has been feeling depressed, hopeless, helpless, tired and did not want to get out of the bed and was sleeping too much or not at all. He stated he was having too many thoughts in his mind and he could not shut his brain off. He stated he has been prescribed Lexapro for anxiety. He stated that without Lexapro he is very short tempered, screams, punches the doors, throws things and becomes loud. He stated he stopped taking Lexapro because it was making him impotent and was giving him sexual side effects. He stated his anxiety has come back and he becomes short of breath, has palpitations and starts shaking. He stated that sexual side effects of his medication are causing a lot of problems between him and his partner. Past history: He stated he has a history of colitis and has a history of drinkin g alcohol. He stated he was never in a rehab. He stated he was prescribed Ativan and he took 4 of them and his partner found him passed out in his car the next morning. He lived with her fianc and she told him to come here. Family history: he stated his mother and father were and he has 2 brothers and 2 sisters. He has 3 daughters. He stated that his sister and her mother has a history of depression. His sister also reportedly has a history of alcohol problems. He denies any history of suicide in the family. Medical history: He stated he has history of ulcerative colitis and had a total colectomy done for that. He takes Imodium 4 mg twice daily for that and also takes iron supplement. Social history: He stated he has some college education and he was on the scholarship for basketball. He stated he has held a bunch of jobs throughout years. He stated he had to use bathroom frequently because of his colitis so he lost lot of jobs due to that. Medication history: He stated he was taking Lexapro 20 mg and Ativan 0.5 mg and also takes Imodium for colitis. Substance abuse history: He stated he drinks alcohol and smokes marijuana regularly. He denies use of any other drugs. History of suicide and homicide: He stated he never attempted suicide prior to this particular time. He has no history of assaulting someone else. Legal history: He denied any history of any involvement with law or police. ALLERGIES: He denies any history of being ALLERGIC to any medication or having adverse drug reaction with any medication. Psychological trauma: He denies a history of physical or sexual abuse ever. Mental status examination: This patient appears to be of his stated age. He has adequate speech language and communication skills. He has adequate hygiene and grooming. He was dressed in a gown. His behavior is cooperative. His mood and affect is depressed. He denies any auditory visual or any other types of hallucinations and denies any delusions. He does not have any loose associations of flight of ideas or any disorder of thought process. His impulse control is poor. He is alert and oriented to time place and person. He has poor insight into his problems and his judgment is impaired. He is cognitively intact. Diagnostic impression: Major depression recurrent severe with suicidal attempt Generalized anxiety and panic disorder Alcohol dependence Recommendations: He will be started back on Lexapro and will take Ativan on an as-needed basis. He will be maintained in the milieu and will be encouraged to participate in unit activities. I discussed the use of Cialis 5 mg daily along with the Lexapro after he leaves the hospital to deal with sexual side effects of Lexapro.
[2020-05-13] MEDS: diphenhydrAMINE 50 MG CAP PO PRN (21:54)
[2020-05-14] MEDS: LORazepam 1 MG TAB PO PRN ×2 (03:05→23:01)
[2020-05-14] MEDS: ACETAMINOPHEN TAB 325 MG TAB PO PRN ×2 (03:05→20:30)
[2020-05-14] MEDS: NICOTINE 14MG/24HR PATCH TRANSDERM SCH (08:17)
[2020-05-14] MEDS: ESCITALOPRAM 20 MG TAB PO SCH (08:18)
[2020-05-14] MEDS ORDERED: buPROPion XL 150 MG TAB.ER.24H PO STA (09:46)
[2020-05-14] MEDS: LOPERAMIDE 2 MG CAP PO PRN ×2 (11:01→18:15)
--- NOTE | 2020-05-14 12:06 | P.PN ---
Progress Note - Text Progress Note Date: 05/14/20 Interval History: Patient was seen resting in his room and was directable and agreeable to speak with group underwriter in the office. The patient reports that he has been having a very difficult time at home with multiple psychosocial stressors contributing to his worsening mood. He reports that he is happy to have this time to himself while in the psychiatric unit. He endorses significant symptoms of depression including anhedonia, decreased hygiene, poor sleep, and low mood. He is currently denying any suicidal or homicidal ideation, intention, and/or plan. He has been adherent with his medications but reports some side effects with Lexapro. He reports that he has been expressing some sexual side effects. In regards to his anxiety, the patient states that they appear to be well- controlled at this time. He understands that he needs to quit his substance abuse as this contributes to his irregular moods. He is open to a trial of Wellbutrin to help with his sexual side effects. Mental Status Exam: General Appearance: Patient appears to be stated age is alert, directable, and cooperative. Patient is tall and well-built. He has multiple tattoos on his right arm. Behavior: Patient is calmly seated without any agitated behavior. Normal psychomotor activity. Eye contact is appropriate. Speech: Patient's speech is fluent and nonpressured. Speech is spontaneous, with normal rate, tone, and volume. Mood/Affect: Mood is improving mildly, affect is congruent and constricted. Suicidality/Homicidality: Patient denies having any suicidal or homicidal ideation intent or plan. Perceptions: Patient denies any visual hallucinations and denies any auditory bob llucinations Though content/process: There is no evidence of any delusional thought content and thought process is linear and goal-directed. Memory and concentration: AOX3, grossly intact for the purposes of this session Judgment and insight: Improving mildly Assessment Major depressive disorder, recurrent, severe Generalized anxiety disorder Alcohol dependence Plan: -Patient continues to meet criteria for inpatient psychiatric admission for symptom stabilization and safety. Patient has signed adult voluntary form and medication consent and was placed in patient's chart. -Medications: Start Wellbutrin 150 mg by mouth daily for depression/sexual side effects Continue Lexapro 20 mg by mouth daily for depression/anxiety -When necessary Ativan and Haldol for agitation/aggression. -NRT - nicotine patch -SW on board for discharge planning. Encouraged the patient to participate in milieu.
[2020-05-14 13:59] VITALS: BMI 24.5
[2020-05-14] MEDS: diphenhydrAMINE 50 MG CAP PO PRN (23:01)
[2020-05-15 07:23] VITALS: BP 131/77; PULSE 66; TEMP 97.6
[2020-05-15] MEDS: NICOTINE 14MG/24HR PATCH TRANSDERM SCH (08:17)
[2020-05-15] MEDS: LOPERAMIDE 2 MG CAP PO PRN (08:17)
[2020-05-15] MEDS: ESCITALOPRAM 20 MG TAB PO SCH (08:18)
[2020-05-15] MEDS ORDERED: buPROPion XL 150 MG TAB.ER.24H PO SCH (09:00)
--- NOTE | 2020-05-15 09:37 | P.DS ---
Providers Date of admission: 05/12/20 15:30 Expected date of discharge: 05/15/20 Attending physician: Lakhwinder Anders MD Consults: 05/12/20 15:41 Consult Physician Routine Consulting Provider: Erasmo Moreno Consult Reason/Comments: medical management Do you want consulting provider notified?: Yes Primary care physician: Erasmo Moreno - Discharge Diagnosis(es) (1) Major depressive disorder Current Visit: Yes Status: Acute (2) Generalized anxiety disorder Current Visit: Yes Status: Chronic Priority: Medium (3) Alcohol abuse Current Visit: Yes Status: Chronic Priority: Medium Hospital Course: Admission HPI: Initial psychiatric evaluation was completed by Dr. Deras on 05/13/2020 who w smitae: "Patient stated he is going through a separation from his partner. He lost his job. He stated he started drinking alcohol and became depressed and had suicidal thoughts and made a suicidal attempt. History of present illness: This patient stated he was thrown out of his job and ever since he has started to drink more than but he would normally do. He stated he thought that he had COVID-19 and did not go to his work for 3 days. He stated he was told he was no call no-show for 3 days and was terminated from his job. He stated he was working on the job for last 2 years up until February 2020. He stated ever since he has been feeling depressed, hopeless, helpless, tired and did not want to get out of the bed and was sleeping too much or not at all. He stated he was having too many thoughts in his mind and he could not shut his brain off. He stated he has been prescribed Lexapro for anxiety. He stated that without Lexapro he is very short tempered, screams, punches the doors, throws things and becomes loud. He stated he stopped taking Lexapro because it was making him impotent and was giving him sexual side effects. He stated his anxiety has come back and he becomes short of breath, has palpitations and starts shaking. He stated that sexual side effects of his medication are causing a lot of problems between him and his partner. Past history: He stated he has a history of colitis and has a history of drinking alcohol. He stated he was never in a rehab. He stated he was prescribed Ativan and he took 4 of them and his partner found him passed out in his car the next morning. He lived with her fianc and she told him to come here. Family history: he stated his mother and father were and he has 2 brothers and 2 sisters. He has 3 daughters. He stated that his sister and her mother has a history of depression. His sister also reportedly has a history of alcohol problems. He denies any history of suicide in the family. Medical history: He stated he has history of ulcerative colitis and had a total colectomy done for that. He takes Imodium 4 mg twice daily for that and also takes iron supplement. Social history: He stated he has some college education and he was on the scholarship for basketball. He stated he has held a bunch of jobs throughout years. He stated he had to use bathroom frequently because of his colitis so he lost lot of jobs due to that." Hospital course: Upon admission to the unit patient was initially sitting with a depressed mood and affect. Patient was however directable and agreeable to commence treatment. The patient was restarted on his home medications of Lexapro and was also discussed the use of Cialis for sexual dysfunction. When evaluated by this provider, the patient was agreeable to starting Wellbutrin to help with his depressive symptoms as well as to address his sexual dysfunction. The patient tolerated this medication well and reported no significant side effects. He denied any over activation, irritability, difficulty sleeping, or headache. Over the course of the hospitalization, the patient gradually improved in regards to his mood, hygiene, and affect. The day of discharge, the patient is not reporting any suicidal or homicidal ideation, intention, and/or plan. He is not reporting any access to firearms or any weapons. He reports that he is future oriented and wants to see his daughters. He states that he will be moving out of his fiance's home and into his mother's house. He is not reporting any auditory or visual hallucinations. He is denying any paranoia or other delusions. He has been adherent with his medications and is not reporting any significant side effects. The patient was counseled at length on his medications and the need for regular compliance and encouraged to follow-up with his outpatient appointments for mental health and for primary care. The patient does have a significant history of substance abuse however was counseled at length on abstaining from all substances including alcohol and marijuana. The patient was offered however declined inpatient substance-abuse rehab. The patient was also evaluated by the medical team on admission. Prior to discharge, family meeting will be arranged by social worker psychiatric to answer any questions and ensure safety. Mental status exam: General Appearance: Patient appears to be stated age is alert, pleasant, and cooperative. Patient is in no acute distress and has fair hygiene and grooming. He has multiple tattoos on his right arm. He patient is a tall and well-built. Behavior: Patient is calmly seated without any agitated behavior. Normal psychomotor activity. Eye contact is appropriate. Speech: Patient's speech is fluent and nonpressured. Mood/Affect: Patient reports their mood is "much better", affect is congruent and euthymic to bright. Suicidality/Homicidality: Patient denies having any suicidal or homicidal ideation intent or plan. Perceptions: Patient denies any auditory or visual hallucinations. Though content/process: There is no evidence of any delusional thought content and thought process is linear and goal-directed. The patient is future oriented. Memory and concentration: AOX3, grossly intact for the purposes of this session. Can spell "WORLD" backwards correctly. Judgment and insight: Improved with guarded prognosis Impression: Major depressive disorder, recurrent, severe Generalized anxiety disorder Alcohol dependence Plan: -Continue with discharge today as patient has improved and stabilized psychiatrically and is not currently an imminent threat to himself and/or others. Patient will remain at chronically elevated risk for harm to self and/or others due to his alcohol abuse and ongoing psychosocial stressors. Protective factors are high functioning, future-oriented, and family-oriented. -Continue medications: Wellbutrin 150 mg daily for depression/sexual side effects Lexapro 20 mg daily for depression/anxiety Nicotine Replacement therapy patches. -Patient was counseled on the need for medication compliance and appropriate follow-up at mental health and also primary care for medical issues. Patient verbalized understanding and agreed. -Social work to arrange for and conduct family meeting to ensure safety upon discharge and answer any questions/concerns. Social work also to arrange for pat ients follow up appointments for psychiatric care along with follow up with primary care provider. -Patient counseled on abstaining from recreational drugs and marijuana and alcohol. Was informed/educated on the adverse effects on their physical and mental health. Patient verbally agreed and understood. Patient was offered substance abuse treatment however declined at this time. -Patient was instructed to return to the hospital or seek immediate medical care if their psychiatric or medical symptoms do worsen or reoccur. -Psychoeducation and supportive therapy provided to patient. Risks and benefits of pharmacological treatment versus the risks and benefits of nontreatment weight and discussed. Informed consent discussion held. Common side effects of psychotropics discussed such as, but not limited to headache, GI disturbance, sexual dysfunction, movement disorders, sedation, and orthostatic hypotension. Life threatening and blackbox warnings of prescribed medications also discussed. Potential risks of operating a vehicle or heavy machinery discussed with patient at length. Advised on importance of compliance and a reliable and responsible manner. Patient advised to review FDA consumer labeling of all medications prior to taking. Patient verbalized understanding of potential risks, and agrees with current treatment plan. Patient advised to medically contact physician/emergency personnel if any acute changes in condition occur. Laboratory Results WBC 10.2 k/uL (3.8-10.6) 05/13/20 07:52 RBC 5.63 m/uL (4.30-5.90) 05/13/20 07:52 Hgb 16.6 gm/dL (13.0-17.5) 05/13/20 07:52 Hct 50.9 % (39.0-53.0) 05/13/20 07:52 MCV 90.4 fL (80.0-100.0) 05/13/20 07:52 MCH 29.5 pg (25.0-35.0) 05/13/20 07:52 MCHC 32.7 g/dL (31.0-37.0) 05/13/20 07:52 RDW 14.4 % (11.5-15.5) 05/13/20 07:52 Plt Count 499 k/uL (150-450) H 05/13/20 07:52 MPV 6.4 05/13/20 07:52 Neutrophils % 67 % 05/13/20 07:52 Lymphocytes % 21 % 05/13/20 07:52 Monocytes % 8 % 05/13/20 07:52 Eosinophils % 2 % 05/13/20 07:52 Basophils % 0 % 05/13/20 07:52 Neutrophils # 6.8 k/uL (1.3-7.7) 05/13/20 07:52 Lymphocytes # 2.2 k/uL (1.0-4.8) 05/13/20 07:52 Monocytes # 0.8 k/uL (0-1.0) 05/13/20 07:52 Eosinophils # 0.2 k/uL (0-0.7) 05/13/20 07:52 Basophils # 0.0 k/uL (0-0.2) 05/13/20 07:52 Sodium 140 mmol/L (137-145) 05/13/20 07:52 Potassium 4.9 mmol/L (3.5-5.1) 05/13/20 07:52 Chloride 103 mmol/L (98-107) 05/13/20 07:52 Carbon Dioxide 28 mmol/L (22-30) 05/13/20 07:52 Anion Gap 9 mmol/L 05/13/20 07:52 BUN 18 mg/dL (9-20) 05/13/20 07:52 Creatinine 1.27 mg/dL (0.66-1.25) H 05/13/20 07:52 Est GFR (CKD-EPI)AfAm 82 (>60 ml/min/1.73 sqM) 05/13/20 07:52 Est GFR (CKD-EPI)NonAf 71 (>60 ml/min/1.73 sqM) 05/13/20 07:52 Glucose 91 mg/dL (74-99) 05/13/20 07:[address] Glu mg/dL 97 05/13/20 07:52 Hemoglobin A1c 5.0 % (4.0-6.0) 05/13/20 07:52 Calcium 9.5 mg/dL (8.4-10.2) 05/13/20 07:52 Total Bilirubin 0.5 mg/dL (0.2-1.3) 05/13/20 07:52 AST 36 U/L (17-59) 05/13/20 07:52 ALT 25 U/L (4-49) 05/13/20 07:52 Alkaline Phosphatase 59 U/L (38-126) 05/13/20 07:52 Total Protein 7.7 g/dL (6.3-8.2) 05/13/20 07:52 Albumin 4.0 g/dL (3.5-5.0) 05/13/20 07:52 Triglycerides 95 mg/dL (<150) 05/13/20 07:52 Cholesterol 180 mg/dL (<200) 05/13/20 07:52 LDL Cholesterol, Calc 136 mg/dL (0-99) H 05/13/20 07:52 HDL Cholesterol 25 mg/dL (40-60) L 05/13/20 07:52 Urine Opiates Screen Not Detected (NotDetected) 05/12/20 14:06 Ur Oxycodone Screen Not Detected (NotDetected) 05/12/20 14:06 Urine Methadone Screen Not Detected (NotDetected) 05/12/20 14:06 Ur Propoxyphene Screen Not Detected (NotDetected) 05/12/20 14:06 Ur Barbiturates Screen Not Detected (NotDetected) 05/12/20 14:06 U Tricyclic Antidepress Not Detected (NotDetected) 05/12/20 14:06 Ur Phencyclidine Scrn Not Detected (NotDetected) 05/12/20 14:06 Ur Amphetamines Screen Not Detected (NotDetected) 05/12/20 14:06 U Methamphetamines Scrn Not Detected (NotDetected) 05/12/20 14:06 U Benzodiazepines Scrn Detected (NotDetected) H 05/12/20 14:06 Urine Cocaine Screen Not Detected (NotDetected) 05/12/20 14:06 U Marijuana (THC) Screen Detected (NotDetected) H 05/12/20 14:06 Coronavirus (PCR) Not Detected (Not Detectd) 05/12/20 14:17 Vital Signs Temp 97.6 F 05/15/20 07:22 Pulse 66 05/15/20 07:22 Resp 18 05/15/20 07:22 BP 131/77 05/15/20 07:22 Pulse Ox 98 05/12/20 18:29 Intake & Output 05/14/20 05/15/20 05/15/20 18:59 06:59 18:59 Weight 91.2 kg Allergies Allergy/AdvReac Type Severity Reaction Status Date / Time No Known Allergies Allergy Verified 05/12/20 18:53 Patient Condition at Discharge: Stable Plan - Discharge Summary Discharge Rx Participant: No New Discharge Prescriptions: New Nicotine 14Mg/24Hr Patch [Habitrol] 1 patch TRANSDERM DAILY 30 Days patch Escitalopram [Lexapro] 20 mg PO DAILY 30 Days tab buPROPion XL [Wellbutrin XL] 150 mg PO DAILY 30 Days tab.er.24h Continue Ferrous Fumarate/Ascorbic Acid [Janet-Sequels 65-25 mg Caplet] 1 tab PO Q48H Discontinued Escitalopram Oxalate [Lexapro] 20 mg PO DAILY LORazepam [Ativan] 0.5 mg PO TID PRN PRN Reason: Anxiety Acetaminophen Tab [Tylenol] 650 mg PO Q6H PRN PRN Reason: Pain Or Fever > 100.5 Discharge Medication List Ferrous Fumarate/Ascorbic Acid [Janet-Sequels 65-25 mg Caplet] 1 tab PO Q48H 01/25/20 [History] Escitalopram [Lexapro] 20 mg PO DAILY 30 Days tab 05/15/20 [Rx] Nicotine 14Mg/24Hr Patch [Habitrol] 1 patch TRANSDERM DAILY 30 Days patch 05/15/20 [Rx] buPROPion XL [Wellbutrin XL] 150 mg PO DAILY 30 Days tab.er.24h 05/15/20 [Rx] Follow up Appointment(s)/Referral(s): [facility] Help Desk Manager [Outside] - 05/17/20 10:00 am (must call or go online and complete new patient registration. Please do so by 05/16. If unable to do online please call office and complete by phone. Myst be done prior to appointment or will need to reschedule. ) Erasmo Moreno MD [Primary Care Provider] - 1-2 days Activity/Diet/Wound Care/Special Instructions: Activity and diet as tolerated. Avoid the use of street drugs and alcohol. Take all medications as prescribed. When you are in need of refills on your medications please contact your medical provider and/or outpatient psychiatrist to have this done. Please go to scheduled outpatient appointment for aftercare treatment. If symptoms return or become worse, call the crisis line at and/or go to the nearest emergency room for evaluation. Discharge Disposition: HOME SELF-CARE
[2020-05-15] MEDS ORDERED: FERROUS SULFATE 325 MG TAB PO SCH (10:00)
[2020-05-15] MEDS ORDERED: ASCORBIC ACID 500 MG TAB PO SCH (10:00)
== END 2020-05-15 13:13 | disposition home or self-care (01) | DRG 885 ==
LOC: EC 10:43 → 3MHU 15:30
PROVIDERS: ADMIT Psychiatry & Neurology Psychiatry; ATTEND Psychiatry & Neurology Psychiatry
DX: F33.2 Major depressive disorder, recurrent severe without psychotic features (principal); K51.90 Ulcerative colitis, unspecified, without complications; R45.851 Suicidal ideations; F10.20 Alcohol dependence, uncomplicated; F17.200 Nicotine dependence, unspecified, uncomplicated; Z20.822 Contact with and (suspected) exposure to COVID-19; F41.0 Panic disorder [episodic paroxysmal anxiety]; F41.1 Generalized anxiety disorder; Z56.0 Unemployment, unspecified; Z79.899 Other long term (current) drug therapy; Z81.8 Family history of other mental and behavioral disorders; Z90.49 Acquired absence of other specified parts of digestive tract; Z93.3 Colostomy status
CPT/HCPCS: 80053; 80061; 80306; 83036; 85025; 87635; 90686; 90732; 99285